=== PATIENT | male | born 1950 | race Caucasian/White ===

== ENCOUNTER 2016-11-19 13:37 | Emergency (ER) | payer OTHER ==
[~2016-11-19] VITALS: Ht 189.2 cm; Wt 113.4 kg
[2016-11-19] MEDS ORDERED: MORPHINE SULFATE 10 MG/ML VIAL. IM ONE (14:30)
[2016-11-19] MEDS ORDERED: DIPHTH,PERTUSS(ACELL),TET TOX 0.5 ML DISP.SYRIN. VAX IM ONE (14:30)
[2016-11-19] MEDS ORDERED: BUPIVACAINE 0.5% 50 ML VIAL. IJ ONE (14:30)
--- NOTE | 2016-11-19 14:50 | RAD ---
Indication laceration of the index finger from the tip to the base of the metacarpal secondary to a saw injury. AP oblique and lateral views of the left hand were obtained. No acute bony finding is seen. There are degenerative changes. There is a minute foreign body in the soft tissues of the hand on the flexor side in the area of the midportion of the fifth metacarpal shaft. (This is likely incidental given the history of injury in the area of the index finger). IMPRESSION: No acute bony finding
--- NOTE | 2016-11-19 15:07 | PHYS DOC ---
Adult General Chief Complaint Chief Complaint: LACERATION/AVULSION [facility] HPI Patient is a 66 year old male with no significant medical history who presents today with left hand laceration. Patient states he was working with a chop saw and accidentally cut himself. Patient is right-handed. Review of Systems Review of Systems Constitutional: Denies fever or chills [] Eyes: Denies change in visual acuity, redness, or eye pain [] HENT: Denies nasal congestion or sore throat [] Respiratory: Denies cough or shortness of breath [] Cardiovascular: No additional information not addressed in HPI [] GI: Denies abdominal pain, nausea, vomiting, bloody stools or diarrhea [] : Denies dysuria or hematuria [] Musculoskeletal: Denies back pain or joint pain [] Integument: Left hand laceration Neurologic: Denies headache, focal weakness or sensory changes [] Endocrine: Denies polyuria or polydipsia [] Current Medications Current Medications Current Medications Medications (Trade) Dose Ordered Sig/Bebo Start Time Stop Time Status Last Admin Dose Admin Bupivacaine HCl (Marcaine 0.5%) 50 ml 1X ONCE 11/19/16 14:30 11/19/16 14:31 DC Diphtheria/ Tetanus/Acell Pertussis (Boostrix) 0.5 ml ONCE ONCE 11/19/16 14:30 11/19/16 14:31 DC 11/19/16 15:56 0.5 ML Morphine Sulfate 5 mg 1X ONCE 11/19/16 14:30 11/19/16 14:31 DC 11/19/16 14:38 5 MG Allergies Allergies Allergies Coded Allergies Type Severity Reaction Last Updated Verified Penicillins Allergy Intermediate 11/19/16 Yes Physical Exam Physical Exam Constitutional: Well developed, well nourished, no acute distress, non-toxic appearance. [] HENT: Normocephalic, atraumatic, bilateral external ears normal, oropharynx moist, no oral exudates, nose normal. [] Eyes: PERRLA, EOMI, conjunctiva normal, no discharge. [] Neck: Normal range of motion, no tenderness, supple, no stridor. [] Cardiovascular:Heart rate regular rhythm, no murmur [] Lungs & Thorax: Bilateral breath sounds clear to auscultation [] Abdomen: Bowel sounds normal, soft, no tenderness, no masses, no pulsatile masses. [] Skin: Patient has a laceration approximately 6 cm long over the left index finger knuckle. The laceration is deep enough to the bone. Patient able to flex and extend the left index finger and middle finger. +2 left radial pulse. Adequate radial medial and ulnar sensation to the left hand. Back: No tenderness, no CVA tenderness. [] Extremities: No tenderness, no cyanosis, no clubbing, ROM intact, no edema. [] Neurologic: Alert and oriented X 3, normal motor function, normal sensory function, no focal deficits noted. [] Psychologic: Affect normal, judgement normal, mood normal. [] Current Patient Data Vital Signs Vital Signs Date Time Temp Pulse Resp B/P (MAP) Pulse Ox O2 Delivery O2 Flow Rate FiO2 11/19/16 15:28 71 20 130/77 (94) 99 11/19/16 14:38 Room Air 11/19/16 14:00 98.1 98.1 EKG EKG [] Radiology/Procedures Radiology/Procedures []PROCEDURE: HAND LEFT 3V Indication laceration of the index finger from the tip to the base of the metacarpal secondary to a saw injury. AP oblique and lateral views of the left hand were obtained. No acute bony finding is seen. There are degenerative changes. There is a minute foreign body in the soft tissues of the hand on the flexor side in the area of the midportion of the fifth metacarpal shaft. (This is likely incidental given the history of injury in the area of the index finger). IMPRESSION: No acute bony finding DICTATED and SIGNED BY: EMILI LITTLE MD DATE: 11/19/16 1442 CC: MEME FONG; FANG NARANJO APRN; MIGEL,STAFF ~ Course & Med Decision Making Course & Med Decision Making Pertinent Labs and Imaging studies reviewed. (See chart for details) Patient is in the ED with left hand laceration after being cut with a chop saw. Left hand x-rays interpreted by radiologist were negative for any acute findings. This laceration is deep enough concerning for tendon injury. Patient wll be transferred to Hospital with a hand surgeon. He was given tetanus in the ED. Dr. Murphy hand surgeon at accepted. Family will transport patient. Dragon Disclaimer Dragon Disclaimer This electronic medical record was generated, in whole or in part, using a voice recognition dictation system. Attending Co-Sign The patient was examined and interviewed in conjunction with nurse practitioner Fang Naranjo as stated. The chart was reviewed. Patient with deep laceration as described, is hemostatic at this time, pain is controlled, concern for tendon injury as stated. Patient is agreeable with plan for transfer to for evaluation by hand surgery. The case was discussed, Fang has arranged for evaluation by Dr. Murphy of hand surgery at . Patient is stable for private vehicle transfer, importance of immediate arrival at for evaluation discussed with patient and at bedside, they voiced understanding. Patient discharged from the ED with dressing in place for immediate evaluation at . Agree with the plan of care and noted above by nurse practitioner Fang. Departure Departure Impression: Primary Impression: Laceration of left hand Disposition: 01 HOME, SELF-CARE Condition: STABLE Referrals: MEME FONG (PCP) Problem Qualifiers Primary Impression: Laceration of left hand Encounter type: initial encounter Foreign body presence: unspecified Qualified Codes: S61.412A - Laceration without foreign body of left hand, initial encounter FANG NARANJO [employer]EN[employer] DESIGN ENGINEER Nov 19, 2016 15:07 NATHANAEL SANZ DO Nov 19, 2016 21:59
[2016-11-19 15:28] VITALS: BP 130/77
== END 2016-11-19 16:35 | disposition home or self-care (01) ==
LOC: ER 13:37
DX: S61.412A Laceration without foreign body of left hand, initial encounter (principal); Z88.0 Allergy status to penicillin; W27.0XXA Contact with workbench tool, initial encounter; Y93.89 Activity, other specified; Y92.89 Other specified places as the place of occurrence of the external cause; Y99.8 Other external cause status
CPT/HCPCS: 73130; 90471; 90715; 96372; 99285; J2270